=== PATIENT | female | born 1975 | race Hispanic/Latino ===

== ENCOUNTER 2019-02-03 16:48 | Emergency (ER) | payer OTHER ==
--- NOTE | 2019-02-03 17:22 | Event Note ---
ED Screening Note Date of service: 02/03/19 Time: 17:17 ED Screening Note: 44 y/o female comes in for 3 weeks of N/V/D. and lightheadedness. This initial assessment/diagnostic orders/clinical plan/treatment(s) is/are subject to change based on patients health status, clinical progression and re- assessment by fellow clinical providers in the ED. Further treatment and workup at subsequent clinical providers discretion. Patient/guardian urged not to elope from the ED as their condition may be serious if not clinically assessed and managed. Initial orders include:
[2019-02-03 17:30] VITALS: BP 110/71
[2019-02-03 18:04] LABS: Basophils # (Auto) 0.1 K/mm3 (0.0-0.1); Basophils % (Auto) 0.6 % (0.0-1.8); Eosinophils # (Auto) 0.2 K/mm3 (0.0-0.4); Hemoglobin 12.6 gm/dl (10.1-14.3); Lymphocytes # (Auto) 2.4 K/mm3 (1.2-5.4); Lymphocytes % (Auto) 26.8 % (13.4-35.0); Mean Corpuscular HGB Conc 33 % (30-34); Mean Corpuscular Volume 85 fl (79-97); Monocytes # (Auto) 0.4 K/mm3 (0.0-0.8); Monocytes % (Auto) 4.2 % (0.0-7.3); Platelet Count 325 K/mm3 (140-440); Red Blood Count 4.47 M/mm3 (3.65-5.03); Red Cell Distribution Width 13.2 % (13.2-15.2)
[2019-02-03 18:26] LABS: Albumin 3.8 g/dL (3.9-5); Calcium 9.1 mg/dL (8.4-10.2)
[2019-02-03 18:51] LABS: Bilirubin,Urine NEG (Negative); Blood,Urine NEG (Negative); Color,Urine Yellow (Yellow); HCG Qualitative,Urine Negative (Negative); Mucus,Urine 3+ /HPF; Protein,Urine <15 mg/dL mg/dL (Negative); Urobilinogen,Urine < 2.0 mg/dL (<2.0)
[2019-02-03] MEDS ORDERED: CARAFATE PO ONE (19:20)
[2019-02-03] MEDS ORDERED: NACL 0.9% 1000 ML 1,000 ML IV ONE (19:20)
[2019-02-03] MEDS ORDERED: ZOFRAN IV ONE (19:20)
[2019-02-03] MEDS ORDERED: PROTONIX IV ONE (19:20)
--- NOTE | 2019-02-03 19:27 | Emergency Department Report ---
ED N/V/D HPI - General Chief complaint: Nausea/Vomiting/Diarrhea Stated complaint: VOMITING/LIGHTHEADED/DIZZY Time Seen by Provider: 02/03/19 17:16 Source: patient Mode of arrival: Ambulatory Limitations: No Limitations - History of Present Illness Initial comments: Patient is a 44-year-old female who presents to emergency room with complaints of intermittent nausea, vomiting, diarrhea for the last 3 weeks. States she only experiences that after eating. Patient states that she has had increased belching. The patient states she cut dairy out of her diet but has continued to have symptoms. she states she has had some cramping and bloating but denies any abdominal pain. She has not seen anyone for it. She does have a history of acid reflux and is not taking any medication for it. she has not seen a GI doctor. she denies any past medical history or allergies to medications. LNMP was January 27. - Related Data Previous Rx's Medication Instructions Recorded Last Taken Type Dicyclomine [Bentyl] 20 mg PO QID PRN #14 tablet 02/03/19 Unknown Rx Omeprazole 20 mg PO DAILY #30 tablet. 02/03/19 Unknown Rx Ondansetron [Zofran Odt] 4 mg PO Q8HR PRN #14 tab.rapdis 02/03/19 Unknown Rx Sucralfate [Carafate] 1 gm PO ACHS #21 tablet 02/03/19 Unknown Rx Allergies Allergy/AdvReac Type Severity Reaction Status Date / Time No Known Allergies Allergy Unverified 02/03/19 17:01 ED Review of Systems ROS: Stated complaint: VOMITING/LIGHTHEADED/DIZZY Other details as noted in HPI Comment: All other systems reviewed and negative ED Past Medical Hx - Past Medical History Previous Medical History?: No - Social History Smoking Status: Never Smoker Substance Use Type: None - Medications Home Medications: Home Medications Medication Instructions Recorded Confirmed Last Taken Type Dicyclomine [Bentyl] 20 mg PO QID PRN #14 tablet 02/03/19 Unknown Rx Omeprazole 20 mg PO DAILY #30 tablet. 02/03/19 Unknown Rx Ondansetron [Zofran Odt] 4 mg PO Q8HR PRN #14 tab.rapdis 02/03/19 Unknown Rx Sucralfate [Carafate] 1 gm PO ACHS #21 tablet 02/03/19 Unknown Rx ED Physical Exam - General Limitations: No Limitations General appearance: alert, in no apparent distress - Head Head exam: Present: atraumatic, normocephalic - Eye Eye exam: Present: normal appearance - ENT ENT exam: Present: mucous membranes moist - Respiratory Respiratory exam: Present: normal lung sounds bilaterally. Absent: respiratory distress, wheezes, rales, rhonchi, stridor, chest wall tenderness, accessory muscle use, decreased breath sounds, prolonged expiratory - Cardiovascular Cardiovascular Exam: Present: regular rate, normal rhythm, normal heart sounds. Absent: systolic murmur, diastolic murmur, rubs, gallop - GI/Abdominal GI/Abdominal exam: Present: soft, normal bowel sounds. Absent: distended, tenderness, guarding, rebound, rigid - Neurological Exam Neurological exam: Present: alert, oriented X3 - Psychiatric Psychiatric exam: Present: normal affect, normal mood - Skin Skin exam: Present: warm, dry, intact ED Course Vital Signs 02/03/19 17:29 Temperature 98.1 F Pulse Rate 74 Respiratory 16 Rate Blood Pressure 110/71 O2 Sat by Pulse 98 Oximetry ED Medical Decision Making - Lab Data Result diagrams: 02/03/19 17:52 02/03/19 17:52 Lab Results 02/03/19 02/03/19 02/03/19 Range/Units 17:52 17:52 18:02 WBC 9.1 (4.5-11.0) K/mm3 RBC 4.47 (3.65-5.03) M/mm3 Hgb 12.6 (10.1-14.3) gm/dl Hct 38.0 (30.3-42.9) % MCV 85 (79-97) fl MCH 28 (28-32) pg MCHC 33 (30-34) % RDW 13.2 (13.2-15.2) % Plt Count 325 (140-440) K/mm3 Lymph % (Auto) 26.8 (13.4-35.0) % [place] % (Auto) 4.2 (0.0-7.3) % Eos % (Auto) 2.0 (0.0-4.3) % Baso % (Auto) 0.6 (0.0-1.8) % Lymph # 2.4 (1.2-5.4) K/mm3 [place] # 0.4 (0.0-0.8) K/mm3 Eos # 0.2 (0.0-0.4) K/mm3 Baso # 0.1 (0.0-0.1) K/mm3 Seg Neutrophils % 66.4 (40.0-70.0) % Seg Neutrophils # 6.0 (1.8-7.7) K/mm3 Sodium 141 (137-145) mmol/L Potassium 3.8 (3.6-5.0) mmol/L Chloride 102.0 (98-107) mmol/L Carbon Dioxide 27 (22-30) mmol/L Anion Gap 16 mmol/L BUN 9 (7-17) mg/dL Creatinine 1.0 (0.7-1.2) mg/dL Estimated GFR 60 ml/min BUN/Creatinine Ratio 9 % Glucose 137 H (65-100) mg/dL Calcium 9.1 (8.4-10.2) mg/dL Total Bilirubin 0.30 (0.1-1.2) mg/dL AST 11 (5-40) units/L ALT 7 (7-56) units/L Alkaline Phosphatase 62 (35-129) units/L Total Protein 7.1 (6.3-8.2) g/dL Albumin 3.8 L (3.9-5) g/dL Albumin/Globulin Ratio 1.2 % Urine Color Yellow (Yellow) Urine Turbidity Cloudy (Clear) Urine pH 5.0 (5.0-7.0) Ur Specific [place] 1.028 (1.003-1.030) Urine Protein <15 mg/dl (Negative) mg/dL Urine Glucose (UA) Neg (Negative) mg/dL Urine Ketones Neg (Negative) mg/dL Urine Blood Neg (Negative) Urine Nitrite Neg (Negative) Urine Bilirubin Neg (Negative) Urine Urobilinogen < 2.0 (<2.0) mg/dL Ur Leukocyte Esterase Neg (Negative) Urine WBC (Auto) 1.0 (0.0-6.0) /HPF Urine RBC (Auto) 9.0 (0.0-6.0) /HPF U Epithel Cells (Auto) 15.0 H (0-13.0) /HPF Urine Mucus 3+ /HPF Ur Yeast w Hyphae N /HPF Urine HCG, Qual Negative (Negative) - Medical Decision Making Patient is a 44-year-old female who presents to emergency room with complaints of intermittent nausea, vomiting, diarrhea for the last 3 weeks. States she only experiences that after eating. Patient states that she has had increased belching. The patient states she cut dairy out of her diet but has continued to have symptoms. she states she has had some cramping and bloating but denies any abdominal pain. She has not seen anyone for it. She does have a history of acid reflux and is not taking any medication for it. she has not seen a GI doctor. she denies any past medical history or allergies to medications. LNMP was January 27. vitals are normal. no abdominal tenderness or CVAT on exam. labs WNL. UA without evidence of UTI. pt given 1L NS, zofran, protonix, carafate. pt states she is feeling better after medications. will give prescriptions for carafate, omeprazole, bentyl, and zofran. advised pt to please take medication as prescribed. Drink plenty of water and eat a bland diet. please follow the diet for acid reflux. Follow up with a GI doctor and primary care doctor in the next 2-3 days. Return to the emergency room for any new or worsening symptoms. - Differential Diagnosis GERD, gastritis, PUD, celiac disase, lactose intolerance Critical care attestation.: If time is entered above; I have spent that time in minutes in the direct care of this critically ill patient, excluding procedure time. ED Disposition Clinical Impression: Nausea vomiting and diarrhea Disposition: DC-01 TO HOME OR SELFCARE Is pt being admited?: No Does the pt Need Aspirin: No Condition: Stable Instructions: Diet for Ulcers and Gastritis (ED), Gastroesophageal Reflux Disease (ED) Additional Instructions: Please take medication as prescribed. Drink plenty of water and eat a bland diet. please follow the diet for acid reflux. Follow up with a GI doctor and primary care doctor in the next 2-3 days. Return to the emergency room for any new or worsening symptoms. Prescriptions: Dicyclomine [Bentyl] 20 mg PO QID PRN #14 tablet PRN Reason: abdominal cramping Sucralfate [Carafate] 1 gm PO ACHS #21 tablet Omeprazole 20 mg PO DAILY #30 tablet. Ondansetron [Zofran Odt] 4 mg PO Q8HR PRN #14 tab.rapdis PRN Reason: Nausea And Vomiting Referrals: [facility] [Provider Group] - 2-3 Days [facility] [Provider Group] - 2-3 Days Time of Disposition: 20:01 Print Language: ARMENIAN
== END 2019-02-03 20:22 | disposition home or self-care (01) ==
LOC: ED 16:48
DX: R11.2 Nausea with vomiting, unspecified (principal); R19.7 Diarrhea, unspecified; Z79.899 Other long term (current) drug therapy
CPT/HCPCS: 36415; 80053; 81001; 81025; 85025; 96361; 96374; 96375; 99283; C9113; J2405; J7030

== ENCOUNTER 2021-04-10 20:55 | Emergency (ER) | payer OTHER ==
[2021-04-10] MEDS ORDERED: dexAMETHasone 20 MG/5 ML VIAL IV ONE (21:18)
--- NOTE | 2021-04-10 21:22 | Emergency Department Report ---
ED ENT HPI - General Chief complaint: Skin/Abscess/Foreign Body Stated complaint: TOOTH ABSCESS/DRAINAGE Source: patient Mode of arrival: Ambulatory Limitations: No Limitations - History of Present Illness Initial comments: CC: neck swelling tooth infection HPI: This is a 46 yo female without significant past medical history who presents with dental infection and chin/neck swelling. She notices left jaw pain and broken tooth 3 weeks ago. 8 days ago dentist prescribed amoxicillin. 3 days ago submandibular hard swelling occurred. Mild difficulty with swallowing. MD complaint: tooth pain, difficulty swallowing, other (Neck swelling) -: Gradual, week(s) (3 weeks tooth pain 3 days chin neck swelling) Location: tooth # (18) Severity: moderate Consistency: constant Improves with: none Worsens with: none Context- Dental: history of dental caries - Related Data Previous Rx's Medication Instructions Recorded Last Taken Type Dicyclomine [Bentyl] 20 mg PO QID PRN #14 tablet 02/03/19 Unknown Rx Omeprazole 20 mg PO DAILY #30 tablet. 02/03/19 Unknown Rx Ondansetron [Zofran Odt] 4 mg PO Q8HR PRN #14 tab.rapdis 02/03/19 Unknown Rx Sucralfate [Carafate] 1 gm PO ACHS #21 tablet 02/03/19 Unknown Rx Allergies Allergy/AdvReac Type Severity Reaction Status Date / Time No Known Allergies Allergy Verified 04/10/21 21:26 ED Dental HPI - General Chief complaint: Skin/Abscess/Foreign Body Stated complaint: TOOTH ABSCESS/DRAINAGE Source: patient Mode of arrival: Ambulatory Limitations: No Limitations - Related Data Previous Rx's Medication Instructions Recorded Last Taken Type Dicyclomine [Bentyl] 20 mg PO QID PRN #14 tablet 02/03/19 Unknown Rx Omeprazole 20 mg PO DAILY #30 tablet. 02/03/19 Unknown Rx Ondansetron [Zofran Odt] 4 mg PO Q8HR PRN #14 tab.rapdis 02/03/19 Unknown Rx Sucralfate [Carafate] 1 gm PO ACHS #21 tablet 02/03/19 Unknown Rx Allergies Allergy/AdvReac Type Severity Reaction Status Date / Time No Known Allergies Allergy Verified 04/10/21 21:26 ED Review of Systems ROS: Stated complaint: TOOTH ABSCESS/DRAINAGE Other details as noted in HPI Comment: All other systems reviewed and negative Constitutional: denies: chills, fever, malaise Respiratory: denies: cough, shortness of breath Cardiovascular: denies: chest pain Gastrointestinal: denies: abdominal pain, nausea, vomiting Musculoskeletal: denies: back pain Neurological: denies: headache ED Past Medical Hx - Past Medical History Previous Medical History?: No - Surgical History Past Surgical History?: No - Social History Smoking Status: Never Smoker Substance Use Type: None - Medications Home Medications: Home Medications Medication Instructions Recorded Confirmed Last Taken Type Dicyclomine [Bentyl] 20 mg PO QID PRN #14 tablet 02/03/19 Unknown Rx Omeprazole 20 mg PO DAILY #30 tablet.dr 02/03/19 Unknown Rx Ondansetron [Zofran Odt] 4 mg PO Q8HR PRN #14 tab.rapdis 02/03/19 Unknown Rx Sucralfate [Carafate] 1 gm PO ACHS #21 tablet 02/03/19 Unknown Rx ED Physical Exam - General Limitations: No Limitations General appearance: alert, in no apparent distress, other (normal voice mild trismus) - Head Head exam: Present: atraumatic, normocephalic - Eye Eye exam: Present: normal appearance - ENT ENT exam: Present: mucous membranes moist, other (Tooth #17 large area of decay, submandibular induration swelling tenderness) - Neck Neck exam: Present: full ROM, other (Shiny indurated edematous submandibular swelling) - Respiratory Respiratory exam: Present: normal lung sounds bilaterally. Absent: respiratory distress, wheezes, rales, rhonchi - Cardiovascular Cardiovascular Exam: Present: regular rate, normal rhythm. Absent: systolic murmur, diastolic murmur, rubs, gallop - GI/Abdominal GI/Abdominal exam: Present: soft, normal bowel sounds. Absent: distended, tenderness, guarding, rebound - Extremities Exam Extremities exam: Present: normal inspection - Neurological Exam Neurological exam: Present: alert, oriented X3 - Psychiatric Psychiatric exam: Present: normal affect, normal mood - Skin Skin exam: Present: warm, dry, intact, normal color. Absent: rash ED Course Vital Signs 04/10/21 04/10/21 21:06 21:26 Temperature 97.9 F Pulse Rate 80 Respiratory 18 Rate Blood Pressure 150/86 [Right] O2 Sat by Pulse 100 100 Oximetry ED Medical Decision Making - Lab Data Result diagrams: 04/10/21 21:25 04/10/21 21:25 - Radiology Data Radiology results: report reviewed Patient Name: LEONEL ANGELES Gender: Female Date of : 1975 Referring Provider: GEMA MARSH Organization: [facility] Accession Number: [id number] Requested Date: April 10, 2021 23:19 Report Status: Final Requested Procedure: 1 Procedure Description: CT neck w con Modality: CT Findings Reporting MD: Jose Ramon Harvey Dictation Time: April 10, 2021 22:44 Belt Worker: Not available Paraeducator Date: CT neck w con INDICATION / CLINICAL INFORMATION: 46 years Female; Dental infection, submandibular swelling. TECHNIQUE: Contiguous thin cut axial images obtained through the neck following IV contrast. Sagittal and coronal reconstructions performed by the technologist. All CT scans at this location are performed using CT dose reduction for ALARA by means of automated exposure control. COMPARISON: None available. FINDINGS: There is a geographically-shaped rim-enhancing fluid collection in the floor mouth region, centered leftward of midline, measuring approximately 3.0 cm AP by 2.3 cm transversely by 1.4 cm c raniocaudally. A smaller fluid collection is seen in the left floor of mouth region more posteriorly with subtle rim enhancement noted. This area measures approximately 1.4 cm in maximum dimension and lies just medial and inferior to the most posterior molar along the left mandibular alveolar ridge. There most likely is a small tract that connects the 2 fluid collections. Mild cellulitic process seen in the subcutaneous soft tissues superficial to the mylohyoid region. I do not see definitive signs of periodontal disease that might explain this process. Multiple dental caries are identified, however. MUCOSAL SPACE: The nasopharynx, oropharynx and vallecula, oral cavity and floor of mouth, hypopharynx, and larynx are grossly normal. LYMPH NODES: Prominent level 2 lymph nodes are identified-left greater than right. These findings are presumably reactive. No signs of necrotic or suppurative node. Enhancing level 1 lymph nodes are noted, which are also presumably reactive. SALIVARY GLANDS: Parotid, submandibular, and visualized sublingual glands are within normal limits. No definitive signs of sialolith. THYROID GLAND: 1.7 cm cyst/nodule seen in the inferior thyroid lobe on the left. Thyroid gland is otherwise grossly normal in appearance. PARANASAL SINUSES: Visualized paranasal sinuses and mastoid air cells are essentially clear. Left maxillary sinus is underdeveloped. SPINE: Disc space narrowing seen at C4-5 and C5-6. Mild disc disease seen at various levels without signs of significant canal stenosis. There is osseous foraminal narrowing on the right at C4-5 related uncinate hypertrophy. Similar findings on the left at C5-6, C4-5, and C3-4. VASCULAR STRUCTURES: Vascular structures are grossly normal in appearance. [facility] [address], [address] [place] [address] P [phone] F [phone] [facility] - Report exported on Sun, Apr 10, 2021 23:04:12 -0500 - Page 2 of 2 ADDITIONAL FINDINGS: Surrounding soft tissues are otherwise grossly normal. IMPRESSION: 1. Floor of mouth abscesses as described above. Presumed reactive adenopathy noted. 2. Left thyroid lobe nodule as described above. Please see below. - Medical Decision Making Davian's angina: Patient received IV Unasyn and IV dexamethasone currently mild trismus protecting airway. Significant submandibular edema with induration and tenderness CT of the neck with IV contrast confirm abscesses in the and the floor the mouth I spoke with [place] transfer nurse who connected me with ENT specialist Dr. Cooper. Patient will be accepted ED to ED transfer to [facility]. patient is exhibiting mild trismus but protecting airway Critical Care Time: Yes Critical care time in (mins) excluding proc time.: 40 Critical care attestation.: If time is entered above; I have spent that time in minutes in the direct care of this critically ill patient, excluding procedure time. 40 minutes of critical care time excluding procedures were used in the care of the patient. I evaluated patient in triage area. During team triage and nurse team members both recognize that patient had severe odontogenic infection. Consequently treatment was expedited. I discussed treatment plan with the nursing team members. I reviewed electronic record. Patient required multiple interventions and reassessments. ED Disposition Clinical Impression: Ludwigs angina, Abscess of submandibular region, Infected dental caries Disposition: 02 SHORT TERM HOSPITAL Is pt being admited?: No Does the pt Need Aspirin: No Condition: Stable
[2021-04-10] MEDS ORDERED: AMPICILLIN/SULBACTA 3GM/100ML 3 GM/100 ML BAG IV ONE (21:25)
[2021-04-10 21:47] LABS: Basophils % (Auto) 0.4 % (0.0-1.8); Eosinophils # (Auto) 0.1 K/mm3 (0.0-0.4); Eosinophils % (Auto) 1.2 % (0.0-4.3); Hematocrit 34.8 % (30.3-42.9); Hemoglobin 11.3 gm/dl (10.1-14.3); Lymphocytes # (Auto) 2.1 K/mm3 (1.2-5.4); Lymphocytes % (Auto) 19.7 % (13.4-35.0); Mean Corpuscular HGB Conc 32 % (30-34); Mean Corpuscular Volume 84 fl (79-97); Monocytes # (Auto) 0.6 K/mm3 (0.0-0.8); Monocytes % (Auto) 5.8 % (0.0-7.3); Platelet Count 379 K/mm3 (140-440); Red Blood Count 4.16 M/mm3 (3.65-5.03)
[2021-04-10 22:06] LABS: Calcium 8.9 mg/dL (8.4-10.2)
--- NOTE | 2021-04-10 23:48 | Cat Scan Report ---
CT neck w con INDICATION / CLINICAL INFORMATION: 46 years Female; Dental infection, submandibular swelling. TECHNIQUE: Contiguous thin cut axial images obtained through the neck following IV contrast. Sagittal and lambert l reconstructions performed by the technologist. All CT scans at this location are performed using CT dose reduction for ALARA by means of automated exposure control. COMPARISON: None available. FINDINGS: There is a geographically-shaped rim-enhancing fluid collection in the floor mouth region, centered leftward of midline, measuring approximately 3.0 cm AP by 2.3 cm transversely by 1.4 cm cran iocaudally. A smaller fluid collection is seen in the left floor of mouth region more posteriorly with subtle rim enhancement noted. This area measures approximately 1.4 cm in maximum dimension and lies just medial and inferior to the most posterior molar along the left mandibular alveolar ridge. There most likely is a small tract that connects the 2 fluid collections. Mild cellulitic process seen in the subcutaneous soft tissues superficial to the mylohyoid region. I do not see definitive signs of periodontal disease that might explain this process. Multiple dental caries are identified, however. MUCOSAL SPACE: The nasopharynx, oropharynx and vallecula, oral cavity and floor of mouth, hypopharynx , and larynx are grossly normal. LYMPH NODES: Prominent level 2 lymph nodes are identified-left greater than right. These findings are presumably reactive. No signs of necrotic or suppurative node. Enhancing level 1 lymph nodes are not ed, which are also presumably reactive. SALIVARY GLANDS: Parotid, submandibular, and visualized sublingual glands are within normal limits. N o definitive signs of sialolith. THYROID GLAND: 1.7 cm cyst/nodule seen in the inferior thyroid lobe on the left. Thyroid gland is oth erwise grossly normal in appearance. PARANASAL SINUSES: Visualized paranasal sinuses and mastoid air cells are essentially clear. Left max illary sinus is underdeveloped. SPINE: Disc space narrowing seen at C4-5 and C5-6. Mild disc disease seen at various levels without s igns of significant canal stenosis. There is osseous foraminal narrowing on the right at C4-5 related uncinate hypertrophy. Similar findings on the left at C5-6, C4-5, and C3-4. VASCULAR STRUCTURES: Vascular structures are grossly normal in appearance. ADDITIONAL FINDINGS: Surrounding soft tissues are otherwise grossly normal. IMPRESSION: 1. Floor of mouth abscesses as described above. Presumed reactive adenopathy noted. 2. Left thyroid lobe nodule as described above. Please see below. INCIDENTAL THYROID NODULE RECOMMENDATION RECOMMENDATION: Dedicated thyroid ultrasound. Nonpalpable nodules detected on US or other anatomic imaging studies are termed incidentally discover ed nodules or incidentalomas. Nonpalpable nodules have the same risk of malignancy as palpable nodule s with the same size. Generally, only nodules >1 cm should be evaluated, since they have a greater po tential to be clinically significant cancers. (GOKUL, 2009). Follow up for incidental thyroid nodules <1 cm is not recommended. Diagnostic thyroid ultrasound is recommended only if the patient meets the following criteria: (1) < 35 years of age with normal life expectancy and nodule >= 1 cm. (2) >= 35 years of age with normal life expectancy and nodule >= 1.5 cm. ACR Ultrasound for incidental thyroid nodules: [email or web address] Signer Name: Jose Ramon Harvey MD, III Signed: 04/10/2021 11:44 PM Workstation Name: [email or web address]
[2021-04-11 02:19] VITALS: BP 131/79
== END 2021-04-11 02:21 | disposition short-term general hospital (02) ==
LOC: ED 20:55
DX: K12.2 Cellulitis and abscess of mouth (principal); K02.9 Dental caries, unspecified; Z79.899 Other long term (current) drug therapy
CPT/HCPCS: 36415; 70491; 80048; 85025; 96365; 96375; 99291; J0295; J1100; Q9967; 99285